=== PATIENT | female | born 1985 | race Hispanic/Latino ===

== ENCOUNTER 2022-01-19 21:45 | Inpatient (IN) | payer OTHER ==
[~2022-01-19] VITALS: Ht 162.6 cm; Wt 61.8 kg
[2022-01-19 22:38] LABS: BASOPHILS % (AUTO) 0.9 % (0.0-5.0); EOSINOPHILS % (AUTO) 0.2 % (0.0-8.0); HEMATOCRIT 36.3 % (36-48); LYMPHOCYTES % (AUTO) 3.5 % (21.0-51.0); MEAN CORPUSCULAR HGB CONC 34.4 g/dL (32.0-36.0); MEAN CORPUSCULAR VOLUME 84.2 fL (79-99); MONOCYTES % (AUTO) 15.6 % (3.0-13.0); NEUTROPHILS % (AUTO) 77.9 % (40.0-77.0); PLATELET COUNT (AUTO) 115 K/uL (130-400); RED BLOOD CELL COUNT(AUTO) 4.31 MIL/uL (4.00-5.50); RED CELL DISTRIBUTION WIDTH 13.8 % (11.0-15.5); WHITE BLOOD COUNT (AUTO) 5.7 K/uL (4.8-10.8)
[2022-01-19 22:50] LABS: BILIRUBIN,URINE Negative (NEGATIVE); COLOR,URINE Yellow (YELLOW); GLUCOSE, URINE (UA) Negative (NEGATIVE); KETONES,URINE Trace mg/dL (NEGATIVE); LEUKOCYTE ESTERASE ,URINE Small (NEGATIVE); NITRATE,URINE Negative (NEGATIVE); OCCULT BLOOD,URINE Large (NEGATIVE); PROTEIN,URINE POS 2+ mg/dL (NEGATIVE); UROBILINOGEN,URINE 0.2 mg/dL (0.2-1.0)
[2022-01-19 22:55] LABS: APPEARANCE,URINE SLIGHTLY CLOUDY (CLEAR)
[2022-01-19 22:57] LABS: ALBUMIN 3.6 g/dL (3.5-5.0); BILIRUBIN,TOTAL 0.6 mg/dL (0.2-1.0); CREATININE 1.4 mg/dL (0.5-1.5); TOTAL PROTEIN, SERUM 9.4 g/dL (6.0-8.3)
[2022-01-19 22:58] LABS: BACTERIA,URINE Few /HPF (None Seen)
[2022-01-19 23:00] LABS: POTASSIUM 2.2 mmol/L (3.5-5.1)
[2022-01-19] MEDS ORDERED: POTASSIUM BICARB/CIT AC 25 MEQ TABLET.EFF PO ONE (23:00)
[2022-01-19] MEDS ORDERED: METOCLOPRAMIDE 10 MG/2 ML VIAL IVP ONE (23:00)
[2022-01-19] MEDS ORDERED: FAMOTIDINE 20MG VIAL IV ONE (23:00)
[2022-01-19] MEDS ORDERED: ONDANSETRON 4MG INJ IVP ONE (23:00)
[2022-01-19] MEDS ORDERED: 0.9%NACL 1000ML 1,000 ML IV ONE ×2 (23:00)
[2022-01-20] MEDS ORDERED: CEFTRIAXONE 1G VIAL IVP ONE
[2022-01-20 00:09] LABS: AMPHET/METH SCREEN,URINE NEGATIVE (NEGATIVE); BARBITURATE SCREEN, URINE NEGATIVE (NEGATIVE); BENZODIAZEPINES SCREEN,URINE POSITIVE (NEGATIVE); CANNABINOID SCREEN,URINE NEGATIVE (NEGATIVE); COCAINE SCREEN,URINE NEGATIVE (NEGATIVE); OPIATE SCREEN,URINE NEGATIVE (NEGATIVE); PHENCYCLIDINE SCREEN,URINE NEGATIVE (NEGATIVE)
[2022-01-20] MEDS ORDERED: LIDOCAINE HCL-MPF 1% 2ML VIAL IV PRN (00:30)
[2022-01-20] MEDS ORDERED: PANTOPRAZOLE 40 MG/VIAL IVP ONE (00:30)
[2022-01-20] MEDS ORDERED: ACETAMINOPHEN 325 MG TAB PO PRN ×2 (00:30)
[2022-01-20] MEDS ORDERED: ONDANSETRON 4MG INJ IV PRN (00:30)
[2022-01-20] MEDS ORDERED: HYDROCODONE/ACETAMINOPHEN 5/325 MG TAB PO PRN (00:30)
[2022-01-20] MEDS ORDERED: MAGNESIUM 2GM PREMIX 50ML 50 ML IV ONE (00:30)
[2022-01-20] MEDS ORDERED: CEFTRIAXONE 1G VIAL IV SCH (00:30)
[2022-01-20] MEDS ORDERED: MORPHINE 4 MG SYG IV PRN (00:30)
[2022-01-20] MEDS ORDERED: MAG/ALUM/SIMETH 30 ML UDCUP PO PRN (00:30)
[2022-01-20] MEDS ORDERED: D5W-1/2 NS/20MEQ KCL 1,000 ML IV SCH (00:30)
[2022-01-20] MEDS ORDERED: KCL 20 MEQ ERTAB PO PRN (00:30)
[2022-01-20] MEDS ORDERED: POTASSIUM CHLORIDE 20MEQ/100ML 100 ML IV ONE (01:13)
[2022-01-20] MEDS ORDERED: POTASSIUM CHLORIDE 10% ELIXIR 20 MEQ/15 ML UDCUP ONE (01:13)
[2022-01-20] MEDS ORDERED: LIDOCAINE HCL-MPF 1% 2ML VIAL ONE (01:13)
[2022-01-20] MEDS: MAGNESIUM 2GM PREMIX 50ML 50 ML IV SCH ×3 (01:28→06:36)
[2022-01-20] MEDS: POTASSIUM CHLORIDE 10% ELIXIR 20 MEQ/15 ML UDCUP PO PRN ×2 (01:29→03:49)
[2022-01-20] MEDS: POTASSIUM CHLORIDE 20MEQ/100ML 100 ML IV PRN ×2 (01:29→06:37)
[2022-01-20 01:45] LABS: CREATININE 1.1 mg/dL (0.5-1.5)
[2022-01-20 01:47] LABS: POTASSIUM 2.7 mmol/L (3.5-5.1)
[2022-01-20] MEDS ORDERED: 0.9%NACL 1000ML 2,000 ML IV ONE (02:19)
[2022-01-20] MEDS ORDERED: 0.9%NACL 1000ML 1,000 ML IV SCH ×3 (02:30→16:00)
[2022-01-20 03:10] VITALS: BP 129/65
[2022-01-20 08:00] VITALS: BP 109/65
[2022-01-20 08:13] LABS: MAGNESIUM 3.1 mg/dL (1.80-2.40)
[2022-01-20 08:47] LABS: POTASSIUM 2.9 mmol/L (3.5-5.1)
[2022-01-20] MEDS: FAMOTIDINE 20MG VIAL IV SCH ×2 (09:11→20:08)
[2022-01-20] MEDS ORDERED: SIMETHICONE 40 MG/0.6 ML ML PO PRN (10:00)
[2022-01-20] MEDS ORDERED: PANTOPRAZOLE 40 MG TAB DR PO SCH (10:00)
[2022-01-20] MEDS ORDERED: SIMETHICONE 40 MG/0.6 ML ML PO SCH (10:00)
[2022-01-20] MEDS ORDERED: KCL 20 MEQ ERTAB PO SCH (10:00)
[2022-01-20] MEDS: CEFTRIAXONE 1G VIAL IV SCH ×2 (10:16→20:07)
[2022-01-20] MEDS ORDERED: SIMETHICONE 80 MG TAB.CHEW PO SCH (11:00)
[2022-01-20 11:46] VITALS: BP 106/58
[2022-01-20 15:35] LABS: CREATININE 0.9 mg/dL (0.5-1.5)
[2022-01-20 15:37] LABS: POTASSIUM 2.9 mmol/L (3.5-5.1)
[2022-01-20 16:19] VITALS: BP 101/90
[2022-01-20 16:21] VITALS: BP_SYST 100; BP_SYST 103; BP_DIAS 70; BP_DIAS 73
[2022-01-20] MEDS ORDERED: IPRATROPIUM/ALBUTEROL SULFATE 3 ML SOLUTION IH PRN (17:00)
[2022-01-20] MEDS ORDERED: KCL 20 MEQ ERTAB PO ONE (17:30)
[2022-01-20 20:00] VITALS: BP 102/55
[2022-01-20] MEDS: DOXYCYCLINE HYCLATE 100 MG TABLET PO SCH (20:07)
[2022-01-20] MEDS: ZOLPIDEM TARTRATE 5 MG TAB PO PRN (20:15)
[2022-01-20] MEDS ORDERED: DIPHENOXYLATE HCL/ATROPINE 2.5/0.025 MG TAB PO ONE (21:25)
[2022-01-20] MEDS ORDERED: DIPHENOXYLATE HCL/ATROPINE 2.5/0.025 MG TAB PO PRN (21:30)
[2022-01-21] VITALS (9 sets, daily range): BP systolic 100–115; BP diastolic 63–79
[2022-01-21 05:30] LABS: HEPATITIS A IGM ANTIBODY Non-Reactive (Negative); HEPATITIS B CORE IGM ANTIBODY Non-Reactive (Negative); HEPATITIS B SURFACE ANTIGEN Non-Reactive (Negative); HEPATITIS C ANTIBODY Non-Reactive (NEGATIVE)
[2022-01-21] MEDS ORDERED: PANTOPRAZOLE 40 MG TAB DR ONE (05:51)
[2022-01-21] MEDS: PANTOPRAZOLE 40 MG TAB DR PO SCH (05:52)
[2022-01-21 06:16] LABS: BASOPHILS % (AUTO) 0.8 % (0.0-5.0); EOSINOPHILS % (AUTO) 0.3 % (0.0-8.0); HEMATOCRIT 31.4 % (36-48); LYMPHOCYTES % (AUTO) 8.5 % (21.0-51.0); MEAN CORPUSCULAR HEMOGLOBIN 29.1 pg (27.0-33.0); MEAN CORPUSCULAR HGB CONC 33.4 g/dL (32.0-36.0); NEUTROPHILS % (AUTO) 68.4 % (40.0-77.0); PLATELET COUNT (AUTO) 219 K/uL (130-400); RED BLOOD CELL COUNT(AUTO) 3.61 MIL/uL (4.00-5.50); RED CELL DISTRIBUTION WIDTH 14.9 % (11.0-15.5); WHITE BLOOD COUNT (AUTO) 7.7 K/uL (4.8-10.8)
[2022-01-21 06:33] LABS: CREATININE 0.8 mg/dL (0.5-1.5); MAGNESIUM 2.6 mg/dL (1.80-2.40); POTASSIUM 3.8 mmol/L (3.5-5.1)
[2022-01-21] MEDS: FAMOTIDINE 20MG VIAL IV SCH ×2 (10:01→19:30)
[2022-01-21] MEDS: DOXYCYCLINE HYCLATE 100 MG TABLET PO SCH ×2 (10:01→19:30)
[2022-01-21] MEDS: CEFTRIAXONE 1G VIAL IV SCH ×2 (10:13→19:30)
[2022-01-21] MEDS: ZOLPIDEM TARTRATE 5 MG TAB PO PRN (19:41)
[2022-01-22] VITALS: BP 102/64
[2022-01-22 04:00] VITALS: BP 92/56
[2022-01-22 05:18] LABS: BASOPHILS % (AUTO) 0.5 % (0.0-5.0); EOSINOPHILS % (AUTO) 2.3 % (0.0-8.0); HEMATOCRIT 30.4 % (36-48); LYMPHOCYTES % (AUTO) 16.2 % (21.0-51.0); MEAN CORPUSCULAR HEMOGLOBIN 28.4 pg (27.0-33.0); MEAN CORPUSCULAR HGB CONC 33.2 g/dL (32.0-36.0); MEAN CORPUSCULAR VOLUME 85.4 fL (79-99); NEUTROPHILS % (AUTO) 59.7 % (40.0-77.0); PLATELET COUNT (AUTO) 299 K/uL (130-400); RED BLOOD CELL COUNT(AUTO) 3.56 MIL/uL (4.00-5.50); WHITE BLOOD COUNT (AUTO) 6.1 K/uL (4.8-10.8)
[2022-01-22 05:39] LABS: ALBUMIN 2.7 g/dL (3.5-5.0); BILIRUBIN,TOTAL 0.4 mg/dL (0.2-1.0); CREATININE 0.7 mg/dL (0.5-1.5); POTASSIUM 3.4 mmol/L (3.5-5.1); TOTAL PROTEIN, SERUM 7.2 g/dL (6.0-8.3)
[2022-01-22] MEDS: PANTOPRAZOLE 40 MG TAB DR PO SCH (05:51)
[2022-01-22 07:22] LABS: CRP QUANTITATIVE 91.5 mg/L (0.00-9.0)
[2022-01-22 07:40] VITALS: BP 91/55
[2022-01-22 07:43] VITALS: BP 88/61
[2022-01-22 07:46] VITALS: BP 103/49
[2022-01-22] MEDS ORDERED: AMOX-426 PO (08:23)
[2022-01-22] MEDS: DOXYCYCLINE HYCLATE 100 MG TABLET PO SCH (10:48)
[2022-01-22] MEDS: CEFTRIAXONE 1G VIAL IV SCH (10:48)
[2022-01-22] MEDS: FAMOTIDINE 20MG VIAL IV SCH (10:48)
== END 2022-01-22 11:50 | disposition home or self-care (01) | DRG 683 ==
LOC: EDH 21:45 → EDHIP 21:46 → 3BH 01-20 03:04
PROVIDERS: ADMIT Internal Medicine; ATTEND Internal Medicine
DX: N17.9 Acute kidney failure, unspecified (principal); E87.1 Hypo-osmolality and hyponatremia; N39.0 Urinary tract infection, site not specified; M62.82 Rhabdomyolysis; E87.3 Alkalosis; E86.0 Dehydration; R79.89 Other specified abnormal findings of blood chemistry; E83.42 Hypomagnesemia; E87.6 Hypokalemia; E87.8 Other disorders of electrolyte and fluid balance, not elsewhere classified; R80.9 Proteinuria, unspecified; K52.9 Noninfective gastroenteritis and colitis, unspecified; J30.2 Other seasonal allergic rhinitis; Z20.822 Contact with and (suspected) exposure to COVID-19; F41.9 Anxiety disorder, unspecified; D64.9 Anemia, unspecified; R53.81 Other malaise; K21.9 Gastro-esophageal reflux disease without esophagitis; Z82.49 Family history of ischemic heart disease and other diseases of the circulatory system
CPT/HCPCS: 36415; 71045; 74176; 76770; 80048; 80053; 80061; 80074; 80305; 81001; 81025; 82533; 82550; 83690; 83735; 83880; 83930; 83935; 84145; 84300; 84443; 84484; 85025; 85651; 86140; 87040; 87046; 87088; 87177; 87324; 87507; 87635; 87804; 94664; C9113; G0378; J0696; J2405; J2765; J3475; J3480; J3490; J7030

== ENCOUNTER 2022-02-26 10:09 | Emergency (ER) | payer OTHER ==
[~2022-02-26] VITALS: Ht 162.6 cm; Wt 61.2 kg
[~2022-02-26 10:09] MED LIST: AMOX-426 PO
[2022-02-26 10:14] VITALS: BP 142/85
[2022-02-26] MEDS ORDERED: 0.9%NACL 1000ML 1,000 ML IV ONE (10:30)
[2022-02-26] MEDS ORDERED: ONDANSETRON 4MG INJ IVP ONE (10:30)
[2022-02-26 10:46] LABS: BASOPHILS % (AUTO) 0.3 % (0.0-5.0); EOSINOPHILS % (AUTO) 0.6 % (0.0-8.0); HEMATOCRIT 35.5 % (36-48); LYMPHOCYTES % (AUTO) 21.1 % (21.0-51.0); MEAN CORPUSCULAR HEMOGLOBIN 28.6 pg (27.0-33.0); MEAN CORPUSCULAR HGB CONC 32.4 g/dL (32.0-36.0); MEAN CORPUSCULAR VOLUME 88.3 fL (79-99); MONOCYTES % (AUTO) 6.8 % (3.0-13.0); NEUTROPHILS % (AUTO) 70.6 % (40.0-77.0); PLATELET COUNT (AUTO) 211 K/uL (130-400); RED BLOOD CELL COUNT(AUTO) 4.02 MIL/uL (4.00-5.50); RED CELL DISTRIBUTION WIDTH 14.5 % (11.0-15.5); WHITE BLOOD COUNT (AUTO) 6.2 K/uL (4.8-10.8)
[2022-02-26 10:49] LABS: APPEARANCE,URINE CLEAR (CLEAR); BILIRUBIN,URINE MODERATE (NEGATIVE); COLOR,URINE YELLOW (YELLOW); GLUCOSE, URINE (UA) NEGATIVE (NEGATIVE); KETONES,URINE 15 mg/dL (NEGATIVE); LEUKOCYTE ESTERASE ,URINE TRACE (NEGATIVE); NITRATE,URINE NEGATIVE (NEGATIVE); OCCULT BLOOD,URINE TRACE-INTACT (NEGATIVE); PROTEIN,URINE 100 mg/dL (NEGATIVE)
[2022-02-26 10:57] LABS: AMPHET/METH SCREEN,URINE NEGATIVE (NEGATIVE); BARBITURATE SCREEN, URINE NEGATIVE (NEGATIVE); BENZODIAZEPINES SCREEN,URINE POSITIVE (NEGATIVE); CANNABINOID SCREEN,URINE POSITIVE (NEGATIVE); COCAINE SCREEN,URINE NEGATIVE (NEGATIVE); OPIATE SCREEN,URINE NEGATIVE (NEGATIVE); PHENCYCLIDINE SCREEN,URINE NEGATIVE (NEGATIVE)
[2022-02-26 11:03] LABS: ALBUMIN 4.1 g/dL (3.5-5.0); BILIRUBIN,TOTAL 0.7 mg/dL (0.2-1.0); CREATININE 0.7 mg/dL (0.5-1.5); MAGNESIUM 1.7 mg/dL (1.80-2.40); TOTAL PROTEIN, SERUM 8.6 g/dL (6.0-8.3)
[2022-02-26 11:04] LABS: BACTERIA,URINE Few /HPF (None Seen); RBC,URINE 0-1 /HPF (0-1); SQUAMOUS EPITHELIAL CELL,UR 0-2 /HPF (0-2); WBC,URINE 0-1 /HPF (0-1)
[2022-02-26 11:13] LABS: POTASSIUM 2.7 mmol/L (3.5-5.1)
[2022-02-26] MEDS ORDERED: POTASSIUM CHLORIDE 10MEQ/100ML 100 ML IV ONE (11:17)
[2022-02-26] MEDS ORDERED: MAGNESIUM 2GM PREMIX 50ML 50 ML IV ONE (11:19)
[2022-02-26] MEDS ORDERED: MAGNESIUM 2GM PREMIX 50ML 50 ML IV SCH (12:00)
[2022-02-26] MEDS ORDERED: POTASSIUM CHLORIDE 10MEQ/100ML 10 MEQ/100 ML ML IV SCH (12:00)
[2022-02-26 13:51] LABS: CREATININE 0.6 mg/dL (0.5-1.5); POTASSIUM 3.6 mmol/L (3.5-5.1)
[2022-02-26] MEDS ORDERED: HYDR25CA PO (14:38)
== END 2022-02-26 14:51 | disposition home or self-care (01) ==
LOC: EDH 10:09
DX: E87.6 Hypokalemia (principal); E83.42 Hypomagnesemia; E86.0 Dehydration; F41.9 Anxiety disorder, unspecified
CPT/HCPCS: 36415; 80048; 80053; 80305; 81001; 82550; 83735; 84702; 85025; 96361; 96365; 96366; 96368; 96375; 99284; J2405 ×2; J3475; J7030

== ENCOUNTER 2024-06-30 19:17 | Emergency (ER) | payer OTHER ==
[~2024-06-30] VITALS: Ht 165.1 cm; Wt 59.9 kg
[~2024-06-30 19:17] MED LIST changes: +HYDR25CA PO
[2024-06-30 20:23] VITALS: BP 125/81; PULSE 83; RESP 18; O2SAT 99
[2024-06-30] MEDS ORDERED: KETO10TA2 PO (21:02)
[2024-06-30] MEDS ORDERED: CYCL-309 PO (21:02)
== END 2024-06-30 21:07 | disposition home or self-care (01) ==
LOC: EDH 19:17
DX: S40.012A Contusion of left shoulder, initial encounter (principal); R51.9 Headache, unspecified; M54.2 Cervicalgia; F41.9 Anxiety disorder, unspecified; Z79.899 Other long term (current) drug therapy; V89.2XXA Person injured in unspecified motor-vehicle accident, traffic, initial encounter; Y93.9 Activity, unspecified; Y92.488 Other paved roadways as the place of occurrence of the external cause; Y99.8 Other external cause status
CPT/HCPCS: 70450; 72125; 73030; 81025